=== PATIENT | female | born 1975 | race Two or more races ===

== ENCOUNTER 2020-12-30 09:14 | Emergency (ER) | payer MEDICAID ==
[~2020-12-30] VITALS: Ht 167.6 cm; Wt 68.0 kg
[2020-12-30] MEDS ORDERED: NAPR-1164 PO (09:34)
--- NOTE | 2020-12-30 09:35 | NUR ---
The patient is bib her for c/o back pain, starts lower back, radiates to her right buttock down to her right lower extremity x 1 week now. She just got liposuction sx in [place]. The patiante rates pain 10/10. Denies numbness/tingling in the extremities at this time. Denies SOB. Respiration regular and unlabored. The patient is attached on a monitor. Warm blanket provided. Will continue to monitor.
[2020-12-30] MEDS ORDERED: HYDROCODONE/APAP 5/325MG TABLET PO ONE (10:00)
[2020-12-30] MEDS ORDERED: HYDROCODONE/APAP 5/325MG TABLET ONE (10:05)
[2020-12-30] MEDS ORDERED: ONDANSETRON HCL/PF 4 MG/2 ML VIAL ONE (10:55)
[2020-12-30] MEDS ORDERED: MORPHINE SULFATE INJ 4 MG/ML DISP.SYRIN ONE (10:56)
[2020-12-30] MEDS ORDERED: ONDANSETRON HCL/PF 4 MG/2 ML VIAL IV ONE (11:00)
[2020-12-30] MEDS ORDERED: MORPHINE SULFATE INJ 2 MG/ML DISP.SYRIN IV ONE (11:00)
[2020-12-30 11:01] LABS: BASOPHILS % (AUTO) 0.4 % (0.0-2.0); EOSINOPHILS % (AUTO) 4.2 % (0.0-6.0); HEMATOCRIT 41 % (33-45); HEMOGLOBIN 13.7 g/dL (11.5-14.8); LYMPHOCYTES # (AUTO) 2.3 /CMM (0.8-4.8); LYMPHOCYTES % (AUTO) 31.1 % (20.0-44.0); MEAN CORPUSCULAR HGB CONC 34 g/dl (31.0-36.0); MEAN CORPUSCULAR VOLUME 89 fL (82-100); MONOCYTES # (AUTO) 0.5 /CMM (0.1-1.30); MONOCYTES % (AUTO) 7.3 % (2.0-12.0); NEUTROPHILS # (AUTO) 4.2 /CMM (1.8-8.9); PLATELET COUNT (AUTO) 352 /CMM (150-450); RED BLOOD CELL COUNT(AUTO) 4.54 MIL/uL (4.0-5.2); WHITE BLOOD COUNT (AUTO) 7.4 K/uL (4.3-11.0)
[2020-12-30 11:09] LABS: CALCIUM, SERUM 8.3 mg/dL (8.5-10.1); CREATININE 0.7 mg/dL (0.6-1.3); POTASSIUM 4.2 mmol/L (3.5-5.1)
[2020-12-30 11:18] LABS: BILIRUBIN,URINE Negative (NEGATIVE); COLOR,URINE YELLOW (YELLOW); LEUKOCYTE ESTERASE ,URINE Negative (NEGATIVE); NITRITE, URINE Negative (NEGATIVE); PH,URINE 5.5 (5.0-8.0); PROTEIN,URINE Negative (NEGATIVE); UGLUCOSE Negative (NEGATIVE); UROBILINOGEN,URINE 0.2 EU/dL (0.2)
[2020-12-30 11:22] LABS: BACTERIA,URINE Few /HPF (None Seen); SQUAMOUS EPITHELIAL CELL,UR Few /HPF (None Seen); WBC,URINE 0-2 /HPF (0-3)
[2020-12-30] MEDS ORDERED: IOHEXOL-300 100 ML VIAL IV ONE (11:34)
[2020-12-30] MEDS ORDERED: IV NS 0.9% 250 ML IV ONE (11:36)
--- NOTE | 2020-12-30 11:57 | NUR ---
The patient is back from CT scan.
[2020-12-30] MEDS ORDERED: CYCL5TAB PO (12:45)
[2020-12-30] MEDS ORDERED: HYDR-4303 PO (12:45)
[2020-12-30 12:47] VITALS: BP 121/67
--- NOTE | 2020-12-30 13:00 | NUR ---
IV removed. Catheter intact and site benign. Pressure and 4x4 applied to site. No bleeding noted.Patient discharged to home in stable condition. Written and verbal after care instructions given. Patient verbalizes understanding of instruction.
== END 2020-12-30 13:05 | disposition home or self-care (01) ==
LOC: ER 09:20
DX: M54.41 Lumbago with sciatica, right side (principal); Z79.899 Other long term (current) drug therapy
CPT/HCPCS: 36415; 74177; 80048; 81001; 85025; 96374; 96375; 99285; J2270; J2405; J7050; Q9967

== ENCOUNTER 2022-05-24 11:05 | Emergency (ER) | payer MEDICAID ==
[~2022-05-24] VITALS: Ht 167.6 cm; Wt 68.0 kg
[~2022-05-24 11:05] MED LIST: CYCL5TAB PO; HYDR-4303 PO; NAPR-1164 PO
[2022-05-24 11:21] VITALS: BP 107/67
== END 2022-05-24 13:29 | disposition home or self-care (01) ==
LOC: ER 11:06
DX: S93.601A Unspecified sprain of right foot, initial encounter (principal); Z79.899 Other long term (current) drug therapy; X58.XXXA Exposure to other specified factors, initial encounter; Y93.89 Activity, other specified; Y92.89 Other specified places as the place of occurrence of the external cause; Y99.8 Other external cause status
CPT/HCPCS: 73630-TC

== ENCOUNTER 2025-07-21 21:29 | Emergency (ER) | payer MEDICAID ==
[~2025-07-21] VITALS: Ht 165.1 cm; Wt 68.0 kg
[2025-07-21 23:56] LABS: APPEARANCE,URINE SLIGHTLY CLOUDY (CLEAR); BLOOD, URINE 2+ Ery/uL (NEGATIVE); LEUKOCYTE ESTERASE ,URINE 3+ (NEGATIVE); NITRITE, URINE NEGATIVE (NEGATIVE); UGLUCOSE NEGATIVE (NEGATIVE)
[2025-07-21 23:58] LABS: PREGNANCY TEST URINE QUAL NEGATIVE (NEGATIVE)
[2025-07-22 00:07] LABS: ADD URINE CULTURE YES
[2025-07-22] MEDS ORDERED: NITROFURANTOIN/MONOHYDRATE MACROCRYSTALS 100 MG CAPSULE ONE (00:07)
[2025-07-22 00:08] LABS: SQUAMOUS EPITHELIAL CELL,UR 0-2 /HPF (None Seen)
[2025-07-22] MEDS ORDERED: NITR100C6 PO (00:08)
[2025-07-22] MEDS: NITROFURANTOIN/MONOHYDRATE MACROCRYSTALS 100 MG CAPSULE PO ONE (00:09)
[2025-07-22 00:17] VITALS: BP 129/80; TEMP 98.4; O2SAT 99
== END 2025-07-22 00:17 | disposition home or self-care (01) ==
LOC: ER 21:39
DX: N39.0 Urinary tract infection, site not specified (principal)
CPT/HCPCS: 81001; 84703-TC; 87086-TC